=== PATIENT | male | born 1985 | race Two or more races ===

== ENCOUNTER 2018-06-07 13:39 | Emergency (ER) | payer OTHER ==
[2018-06-07 13:46] VITALS: BP 118/72; PULSE 89; TEMP 98.2; BMI 21.9
--- NOTE | 2018-06-07 14:37 | PDOC ---
History of Present Illness - General Chief Complaint: Pain, Acute Stated Complaint: RIGHT WRIST PAIN Time Seen by Provider: 06/07/18 14:29 - History of Present Illness Initial Comments: 06/07/18 14:31 33-year-old male without comorbidities presents for evaluation of right wrist pain 3 weeks after fall on an outstretched hand. He points to the ulnar aspect of his right wrist as the area of his discomfort. Past History - Past Medical History Allergies/Adverse Reactions: Allergies Allergy/AdvReac Type Severity Reaction Status Date / Time No Known Allergies Allergy Verified 06/07/18 13:46 Home Medications: Ambulatory Orders NK [No Known Home Medication] 06/07/18 COPD: No Diabetes: No - Surgical History Cardiac Surgery: No - Immunization History Immunization Up to Date: No - Suicide/Smoking/Psychosocial Hx Smoking History: Current every day smoker Have you smoked in the past 12 months: Yes Information on smoking cessation initiated: No Hx Alcohol Use: No Drug/Substance Use Hx: No Review of Systems - Review of Systems Musculoskeletal: Yes: Joint Pain *Physical Exam - Vital Signs Last Vital Signs Temp Pulse Resp BP Pulse Ox 98.2 F 89 18 118/72 98 06/07/18 13:43 06/07/18 13:43 06/07/18 13:43 06/07/18 13:43 06/07/18 13:43 - Physical Exam Comments: 06/07/18 14:37 Right wrist skin color and temperature are normal. Range of motion of flexion and extension is full and nonpainful. This pain at terminal supination. Positive axial grind no tenderness at the distal radius, scaphoid, oral styloid. Neurovascularly intact free of any gross sensorimotor deficits. Elbow is non tender Moderate Sedation - Procedure Monitoring Vital Signs: Procedure Monitoring Vital Signs Temperature 98.2 F 06/07/18 13:43 Pulse Rate 89 06/07/18 13:43 Respiratory Rate 18 06/07/18 13:43 Blood Pressure 118/72 06/07/18 13:43 O2 Sat by Pulse Oximetry (%) 98 06/07/18 13:43 ED Treatment Course - RADIOLOGY Radiology Studies Ordered: Category Date Time Status WRIST- RIGHT [RAD] Stat Radiology 06/07/18 14:31 Ordered Medical Decision Making - Medical Decision Making 06/07/18 14:44 no fx, DRUJ intact ? [facility]CC 06/07/18 14:44 *DC/Admit/Observation/Transfer Diagnosis at time of Disposition: Wrist sprain - Discharge Dispostion Disposition: HOME Condition at time of disposition: Stable Decision to Admit order: No - Referrals Referrals: Jordan Mckinley MD [Staff Physician] - - Patient Instructions Printed Discharge Instructions: Wrist Sprain, DI for Wrist Sprain Additional Instructions: Please wear the splint throughout the day and sleep in a. He may remove it for hygiene. Follow-up with hand surgery in 1-2 days for further evaluation and treatment options. Tylenol Motrin as directed for pain and should symptoms worsen or go unresolved. - Post Discharge Activity
== END 2018-06-07 15:04 | disposition home or self-care (01) ==
LOC: JERFT 13:39
PROC: 2W3CX1Z Immobilization of Right Lower Arm using Splint (ICD-10-PCS; principal; 2018-06-07)
DX: S63.501A Unspecified sprain of right wrist, initial encounter (principal); W18.39XA Other fall on same level, initial encounter; Y93.89 Activity, other specified; Y92.89 Other specified places as the place of occurrence of the external cause; Y99.8 Other external cause status
CPT/HCPCS: 29515; 73110-TC-RT-FY; 99281-25

== ENCOUNTER 2021-12-07 07:55 | Inpatient (IN) | payer OTHER ==
[2021-12-07 08:32] VITALS: BMI 15.5
[2021-12-07] MEDS ORDERED: BISMUTH SUBSALICYLATE 524 MG/30 ML PO PRN (11:59)
[2021-12-07] MEDS ORDERED: ACETAMINOPHEN 325 MG TABLET (FP) PO PRN ×2 (11:59)
[2021-12-07] MEDS ORDERED: MAG HYDROX/AL HYDROX/SIMETH 30 ML UNIT-DOSE CUP PO PRN (11:59)
[2021-12-07] MEDS ORDERED: IBUPROFEN 400 MG TABLET (FP) PO PRN (11:59)
[2021-12-07] MEDS ORDERED: NICOTINE 10 MG CARTRIDGE (INHALER) IH PRN (11:59)
[2021-12-07] MEDS ORDERED: IBUPROFEN 600 MG TABLET (FP) PO PRN (11:59)
[2021-12-07] MEDS ORDERED: BENZOCAINE/MENTHOL (CHLORASEPTIC ) LOZENGE MM PRN (11:59)
[2021-12-07] MEDS ORDERED: DICYCLOMINE HCL 10 MG CAPSULE PO PRN (11:59)
[2021-12-07] MEDS ORDERED: ONDANSETRON *ODT* 4 MG TABLET SL PRN (11:59)
[2021-12-07] MEDS ORDERED: MAGNESIUM CITRATE 300 ML BOTTLE PO PRN (11:59)
[2021-12-07] MEDS ORDERED: LOPERAMIDE HCL 2 MG CAPSULE PO PRN (11:59)
[2021-12-07] MEDS ORDERED: MAGNESIUM HYDROX 2400MG/30ML ORAL SUSPENSION 30 ML CUP PO PRN (11:59)
[2021-12-07] MEDS ORDERED: METHOCARBAMOL 500 MG TABLET PO PRN (11:59)
[2021-12-07] MEDS: hydrOXYzine PAMOATE 25 MG CAPSULE (FP) PO SCH ×3 (14:11→22:18)
[2021-12-07] MEDS ORDERED: MELATONIN 5 MG TABLETS PO SCH (22:00)
[2021-12-07] MEDS: THIAMINE HCL 100 MG TABLET (FP) PO SCH (22:18)
[2021-12-08] MEDS: hydrOXYzine PAMOATE 25 MG CAPSULE (FP) PO SCH ×5 (06:20→22:09)
[2021-12-08] MEDS: PRENATAL VITAMINS W/ FOLIC ACID TABLET (FP) PO SCH (10:32)
[2021-12-08 10:57] LABS: HEMATOCRIT 39.4 % (35.4-49); HEMOGLOBIN 13.3 GM/dL (11.7-16.9); MCH 32.4 pg (25.7-33.7); MCHC 33.7 g/dl (32.0-35.9); MEAN PLT VOLUME 7.8 fl (7.5-11.1); PLATELET COUNT 273 10^3/uL (134-434); RBC 4.11 M/mm3 (4.00-5.60); RDW 13.1 % (11.9-15.9); WHITE BLOOD COUNT 6.2 K/mm3 (4.0-10.0)
[2021-12-08 11:26] LABS: CALCIUM 9.8 mg/dL (8.5-10.1)
[2021-12-08 11:27] LABS: ALBUMIN 3.8 g/dl (3.4-5.0); BLOOD UREA NITROGEN 10.9 mg/dL (7-18)
[2021-12-08 11:30] LABS: CREATININE 1.1 mg/dL (0.55-1.3)
[2021-12-08 11:31] LABS: BILIRUBIN,TOTAL 1.2 mg/dL (0.2-1); TOT PROT 6.9 g/dl (6.4-8.2)
[2021-12-08 21:25] VITALS: RESP 17
[2021-12-08] MEDS ORDERED: SUVOREXANT 10 MG TABLET PO PRN (22:00)
[2021-12-08] MEDS: THIAMINE HCL 100 MG TABLET (FP) PO SCH (22:09)
[2021-12-08 23:40] LABS: EPI CELLS 4 /uL (0-25.1); HYALINE CASTS 0 /uL (0-3.1); PH,URINE 6.5 (5.0-8.0); URINE APPEARANCE CLEAR; URINE BACTERIA 2 /uL (0-1359); URINE BILIRUBIN NEGATIVE (NEGATIVE); URINE COLOR YELLOW; URINE GLUCOSE (UA) NEGATIVE (NEGATIVE); URINE KETONE NEGATIVE (NEGATIVE); URINE LEUK ESTERASE TRACE (NEGATIVE); URINE NITRITE NEGATIVE (NEGATIVE); URINE PROTEIN NEGATIVE (NEGATIVE); URINE RBC 1 /uL (0-23.9); URINE WBC 29 /uL (0-25.8)
[2021-12-09 06:06] VITALS: BP 111/62; PULSE 62; TEMP 97.1
[2021-12-09] MEDS: hydrOXYzine PAMOATE 25 MG CAPSULE (FP) PO SCH ×2 (06:10→12:04)
[2021-12-09] MEDS: PRENATAL VITAMINS W/ FOLIC ACID TABLET (FP) PO SCH (12:04)
== END 2021-12-09 08:28 | disposition home or self-care (01) | DRG 773 ==
LOC: YASAS 07:55 → UNDOADMIN 12:51 → Y6N 12:51
PROVIDERS: ADMIT Allergy & Immunology; ATTEND Surgery
PROC: HZ2ZZZZ Detoxification Services for Substance Abuse Treatment (ICD-10-PCS; principal; 2021-12-07)
DX: F11.23 Opioid dependence with withdrawal (principal); F14.20 Cocaine dependence, uncomplicated; F12.20 Cannabis dependence, uncomplicated; F17.210 Nicotine dependence, cigarettes, uncomplicated; F19.282 Other psychoactive substance dependence with psychoactive substance-induced sleep disorder; F19.24 Other psychoactive substance dependence with psychoactive substance-induced mood disorder; F51.05 Insomnia due to other mental disorder; Z62.810 Personal history of physical and sexual abuse in childhood; Z28.310 Unvaccinated for COVID-19; Z59.01 Sheltered homelessness
CPT/HCPCS: 36415; 80053; 81003; 85027; 86780; 87811; 93005; 93010; C9803-CS; U0003; U0005